=== PATIENT | male | born 1995 | race Two or more races ===

== ENCOUNTER 2017-12-04 18:27 | Emergency (ER) | payer MEDICAID, OTHER ==
[~2017-12-04] VITALS: Ht 167.6 cm; Wt 54.0 kg
[2017-12-04 18:39] VITALS: BP 117/75
[2017-12-04] MEDS ORDERED: LET TOPICAL SOLN 5 ML TOP ONE (20:45)
[2017-12-04] MEDS ORDERED: BACITRACIN TOP OINT 1 UD PKG TOP ONE (20:45)
[2017-12-04] MEDS ORDERED: LIDOCAINE 1% (LOCAL ANESTH.) PF 5ml SDV ID ONE (20:45)
== END 2017-12-04 22:38 | disposition home or self-care (01) ==
LOC: ER 18:33
DX: S91.311A Laceration without foreign body, right foot, initial encounter (principal); W22.8XXA Striking against or struck by other objects, initial encounter; Y93.89 Activity, other specified; Y99.8 Other external cause status; Y92.89 Other specified places as the place of occurrence of the external cause
CPT/HCPCS: 12002; 73630; 99284; J3490